=== PATIENT | female | born 1945 | race Caucasian/White ===

== ENCOUNTER 2019-11-03 08:55 | Day surgery (SDC) | payer MEDICARE, OTHER ==
[2019-10-27 10:15] LABS: BASOPHILS # (AUTO) 0.1 X10'3 (0-0.2); BASOPHILS % (AUTO) 0.7 % (0-1); EOSINOPHILS # (AUTO) 0.3 X10'3 (0-0.9); EOSINOPHILS % (AUTO) 3.5 % (0-6); LYMPHOCYTES # (AUTO) 2.2 X10'3 (1.1-4.8); LYMPHOCYTES % (AUTO) 26.1 % (21-51); MEAN CORPUSCULAR HEMOGLOBIN 29.1 PG (27.0-31.0); MEAN CORPUSCULAR HGB CONC 33.5 g/dL (33.0-36.5); MEAN CORPUSCULAR VOLUME 86.8 FL (78-98); MEAN PLATELET VOLUME 7.1 FL (7.4-10.4); MONOCYTES # (AUTO) 0.7 X10'3 (0-0.9); NEUTROPHILS # (AUTO) 5.2 X10'3 (1.8-7.7); NEUTROPHILS % (AUTO) 61.7 % (42-75); PRE OP HEMATOCRIT 41.2 % (35.0-45.0); PRE OP HEMOGLOBIN 13.8 g/dL (12.0-16.0); PRE OP PLATELET COUNT 367 X10'3 (140-440); RED BLOOD COUNT 4.75 X10'6 (4.20-5.60); RED CELL DISTRIBUTION WIDTH 13.5 % (11.5-14.5)
[2019-10-27 10:19] LABS: ALBUMIN 4.3 G/DL (3.4-5.0); ALBUMIN/GLOBULIN RATIO 1.1 (1.1-1.5); ALKALINE PHOSPHATASE 74 IU/L (46-116); BLOOD UREA NITROGEN 17 MG/DL (7-18); BUN/CREATININE RATIO 17.3 (6.6-38.0); CALCIUM 9.5 MG/DL (8.5-10.1); CHLORIDE 104 MMOL/L (99-107); CREATININE 0.98 MG/DL (0.40-0.90); PRE OP ALT 29 U/L (30-65); PRE OP ANION GAP 10 (8-16); PRE OP AST 27 U/L (10-37); PRE OP BILIRUB, TOTAL 0.5 MG/DL (0.0-1.0); PRE OP GLUCOSE 106 MG/DL (70-104); PRE OP SODIUM 139 MMOL/L (135-145); TOTAL PROTEIN 8.1 G/DL (6.4-8.2); eGFR 56 ML/MIN
[~2019-11-03] VITALS: Ht 170.2 cm; Wt 90.7 kg
[2019-11-03] VITALS (17 sets, daily range): BP systolic 128–149; BP diastolic 57–105
[~2019-11-03 08:55] MED LIST: AZEL137S4; BENA40TA73 PO; BUPIVAcaine/PF 2.5 mg/ml (0.25%) 30ml vial ONE; LIDOcaine 1% 30ml preserv. free vial ONE; PRAV40TA3 PO; ceFAZolin 2gm in dextrose, iso 50 ML IV ONE; famotidine 20mg tablet PO ONE; ringers solution, lacted 1,000 ML IV SCH
[2019-11-03] MEDS ORDERED: sevoflurane 250ml liquid IH ONE (13:08)
[2019-11-03] MEDS ORDERED: fentaNYL/PF 50MCG/1 ML 2ML syringe ONE ×2 (13:09→13:19)
[2019-11-03] MEDS ORDERED: ringers solution, lacted 1,000 ML IV SCH (14:03)
[2019-11-03] MEDS ORDERED: HYDROmorphone inj. 0.5 MG/0.5 ML DISP.SYRIN IV PRN ×2 (14:05)
[2019-11-03] MEDS ORDERED: ondansetron/PF 4mg/2ml inj IV PRN (14:05)
[2019-11-03] MEDS ORDERED: propofol inj 20 ML IV ONE (14:10)
[2019-11-03] MEDS ORDERED: LIDOcaine 2% (20mg/ml) 5ml vial ONE (14:10)
[2019-11-03] MEDS ORDERED: neostigmine methylsulfate 1 MG/ML 10ml vial ONE (14:10)
[2019-11-03] MEDS ORDERED: dexamethasone sod phosphate 4mg/ml inj. ONE (14:10)
[2019-11-03] MEDS ORDERED: rocuronium 10mg/ml inj IV ONE (14:10)
[2019-11-03] MEDS ORDERED: ondansetron/PF 4mg/2ml inj ONE (14:10)
[2019-11-03] MEDS ORDERED: glycopyrrolate 0.2mg/ml inj ONE (14:10)
[2019-11-03] MEDS ORDERED: morphine 4 MG/ML inj SYRINge ONE (14:27)
--- NOTE | 2019-11-03 14:29 | NUR ---
RECEIVED FROM OR VIA [facility] ACCOMPANIED BY ANESTHESIOLOGIST DR ARAIZA, REPORT GIVEN. PT DROWSY BUT AROUSES EASILY AND DENIES PAIN AT THIS TIME. 20 GAUGE PIV R HAND PATENT AND RUNNING LR AT 100 ML/HR. ABD SOFT, LARGE BANDAID DRESSING X 3 CDI. GOOD CAP REFILL, PPULSES PRESENT, VSS, RESTING COMFORTABLY
[2019-11-03] MEDS ORDERED: HYDROcodone/acetaminophen 5mg/325mg tablet PO PRN (14:35)
[2019-11-03] MEDS: morphine 2 MG/ML inj. syringe IV PRN ×5 (14:54→16:21)
--- NOTE | 2019-11-03 16:59 | NUR ---
PATIENT AWAKE AND ALERT WITH PAIN LEVEL A 4 AT THIS TIME. 20 GAUGE PIV R HAND DC/D CATH TIP INTACT. ABD SOFT, LARGE BANDAID DRESSING X 3 CDI. GOOD CAP REFILL, PPULSES PRESENT, VSS, PT ABLE TO AMBULATE, DRESS SELF, TOLERATE FLUIDS, AND VOID. DISCHARGE INSTRUCTIONS GIVEN AND PT VERBALIZED UNDERSTANDING. TRANSFERRED VIA WHEELCHAIR TO SON IN PRIVATE VEHICLE TO HOME.
== END 2019-11-03 16:59 | disposition home or self-care (01) ==
LOC: PAS 08:55
PROVIDERS: ATTEND Surgery
DX: K40.90 Unilateral inguinal hernia, without obstruction or gangrene, not specified as recurrent (principal); K40.30 Unilateral inguinal hernia, with obstruction, without gangrene, not specified as recurrent; I10 Essential (primary) hypertension; E78.5 Hyperlipidemia, unspecified; Z98.890 Other specified postprocedural states; Z87.891 Personal history of nicotine dependence; Z79.899 Other long term (current) drug therapy; Z91.09 Other allergy status, other than to drugs and biological substances; Z72.89 Other problems related to lifestyle; Z11.59 Encounter for screening for other viral diseases; Z82.61 Family history of arthritis; Z83.79 Family history of other diseases of the digestive system
CPT/HCPCS: 36415; 49650; 80053; 82948; 85025; 87635; 93005; C1781; J1100; J2001; J2270; J2405; J2704; J2710; J3010; J3490; J7120; A4215; A4618